=== PATIENT | male | born 1935 | race African-American/Black ===

== ENCOUNTER → 2020-02-25 | Outpatient (CLI) | payer MEDICARE, OTHER ==
[~2020-02-25] MED LIST: ASPI-1497 PO; ATEN50TA PO; LISI-604 PO; PITA4TAB2 PO
== END | disposition home or self-care (01) ==
LOC: MRI 12:44
PROVIDERS: ATTEND Neurological Surgery
DX: M48.061 Spinal stenosis, lumbar region without neurogenic claudication (principal); M47.817 Spondylosis without myelopathy or radiculopathy, lumbosacral region
CPT/HCPCS: 72148